=== PATIENT | male | born 1995 ===

== ENCOUNTER 2021-03-17 16:47 | Emergency (ER) | payer OTHER ==
[2021-03-17 17:14] VITALS: BP 125/70; PULSE 93; TEMP 98.7; BMI 21.8
== END 2021-03-17 17:58 | disposition home or self-care (01) ==
LOC: JERFT 16:47
DX: S89.91XA Unspecified injury of right lower leg, initial encounter (principal); W01.0XXA Fall on same level from slipping, tripping and stumbling without subsequent striking against object, initial encounter
CPT/HCPCS: 99281-25